=== PATIENT | male | born 1975 | race Caucasian/White ===

== ENCOUNTER 2017-11-10 18:23 | Observation (INO) | payer OTHER ==
[~2017-11-10] VITALS: Ht 176.5 cm; Wt 158.8 kg
[~2017-11-10 18:23] MED LIST: CYCLOBENZAPRINE10 M1 PO; FLEXERIL10 MG PO; GOOD SENSE IBU200 MG PO; IBUPROFEN800 M1 PO; MEDROL DOSEPAK1 PAC PO; MEDROL4 M2 PO; MEDROL4 MG PO; MULTIVITAMIN1 TAB PO; PERCOCET 325 MG1 TA2 PO; PERCOCET 5-3251 EACH PO; TORADOL10 MG PO; TRAMADOL50 MG PO; VICODIN 300 MG-1 TAB PO
--- NOTE | 2017-11-10 18:31 | ED NECK/BACK PAIN COMPLAINT ---
History of Present Illness General Chief Complaint: Lower Extremity Problems Stated Complaint: "NO MOBILITY IN MY LEGS" PER PT Source: patient, family Exam Limitations: no limitations Vital Signs & Intake/Output Vital Signs & Intake/Output Vital Signs Date Time Temp Pulse Resp B/P B/P Pulse O2 O2 Flow FiO2 Mean Ox Delivery Rate 11/11 0047 81 96 11/10 2215 98.3 66 20 146/90 96 Room Air 11/10 2120 98.6 69 20 117/72 98 Room Air 11/10 1827 97.4 87 18 168/83 97 Room Air Room Air ED Intake and Output 11/11 0000 11/10 1200 Intake Total Output Total Balance Patient 350 lb Weight Weight Reported by Patient Measurement Method Allergies Coded Allergies: Iodinated Contrast- Oral and IV Dye (PER PT SWELLING AND BLISTERS 11/10/17) Penicillins (UNKNOWN REACTION HAD A KID 11/10/17) cat dander (EYES ITCH AND SWELL, SNEEZE, COUGH 11/10/17) shellfish derived (THROAT CLOSES 11/10/17) Triage Note: TRIAGE: 42 Y/O MALE PRESENTS C/O CHRONIC LOW BACK PAIN AND NUMBNESS IN LOWER EXTREMITIES. REPORTS NUMBNESS ONSET X48 HOURS. "[place] TODAY RIGHT ONTO MY KNEES. NEVER STRUCK MY HEAD." Triage Nurses Notes Reviewed? yes Onset: Abrupt Duration: week(s): (2), constant, getting worse Quality/Severity: moderate, severe Location: lumbar spine Radiation: upper legs, lower legs HPI: 42-year-old male comes into the emergency room for further evaluation of low back pain. Patient reports that he's been having increasing low back pain with radiation down his legs bilaterally. Associated numbness and tingling. He reports that he also has been having weakness in his legs. His legs have been giving out he's been falling. He denies any urinary bowel dysfunction. Denies any genital numbness. He comes in seeking further evaluation. (Romario CARRENO,Jim) Reconcile Medications Cyclobenzaprine HCl 10 MG TABLET 1 TAB PO 4 TIMES/DAY PRN MUSCLE SPASM Ibuprofen 800 MG TABLET 1 TAB PO TID PRN pain Methylprednisolone. (Medrol) 4 MG TAB.DS.PK 1 DP PO AD BACK PAIN 6 on day 1 then reduce by one tablet daily until gone Naproxen 500 MG TABLET 1 TAB PO BID PAIN/INFLAMMATION (Reported) Oxycodone HCl/Acetaminophen (Percocet 5-325 MG Tablet) 5 MG-325 MG TABLET 1 TAB PO 4XDP PRN PAIN TEN...[id number] (Nicole ZHOU,Oscar Guzman) Past History Travel History Traveled to [place] past 21 day No Medical History Any Pertinent Medical History? 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 esophageal CA). MOTHER (Colon CA. MS.). UNCLE (MS). Hx Contributory? No (Jim Zimmerman) Review of Systems Review of Systems Constitutional: Reports: no symptoms. Eyes: Reports: no symptoms. Ears, Nose, Throat, Mouth: Reports: no symptoms. Respiratory: Reports: no symptoms. Cardiovascular: Reports: no symptoms. Gastrointestinal/Abdominal: Reports: no symptoms. Musculoskeletal: Reports: see HPI. Skin: Reports: no symptoms. Neurological/Psychological: Reports: no symptoms. All Other Systems: Reviewed and Negative (Jim Zimmerman) Physical Exam Physical Exam General Appearance: well developed/nourished, mild distress Head: atraumatic Eyes: Bilateral: normal appearance. Ears, Nose, Throat, Mouth: hearing grossly normal, moist mucous membrane Neck: normal inspection Respiratory: no respiratory distress Genital/Rectal: normal rectal tone Back: normal inspection, decreased range of motion, no tenderness, no swelling, no erythema Extremities: normal range of motion Neurologic/Psych: awake, alert, oriented x 3, normal mood/affect Skin: intact, normal color, warm/dry Comments: 3 out of 5 strength in lower extremities bilaterally, unable to elicit patellar reflex bilaterally, negative Babinski sign, unable to distinguish between sharp and dull in lower extremities Core Measures CVA/TIA Diagnosis: No (Jim Zimmerman) Progress Differential Diagnosis: cauda equina syn, herniated disc, myofascial strain, sciatica Plan of Care: Orders Procedure Date/time Status Regular Diet 11/11 B Active CONTIN. POSITIVE AIRWAY PRESS 11/10 224 Complete Vital Signs 11/10 2225 Active Teach/Educate 11/10 2225 Active Pain Treatment and Response 11/10 2225 Active Nutritional Intake, Monitor 11/10 2225 Active Isolation 11/10 2225 Active Intake & Output 11/10 2225 Active Patient Care Conference 11/10 2225 Active Activity/Ambulation 11/10 2225 Active TRC EVALUATION (GEN) 11/11 2119 Active PT Evaluate & Treat 11/11 2119 Active Pathway - chart 11/11 2119 Active House Staff 11/11 2119 Active Code Status 11/11 2119 Active Patient Data 11/11 2035 Active Saline Lock 11/[address] in observation 11/10 2032 Active Misc Message 11/10 2032 Active ED Holding Orders 11/10 2032 Active Vital Signs 11/10 2032 Active Code Status 11/10 2032 Complete WESTERGREN SED RATE 11/11 2023 Complete COMPREHENSIVE METABOLIC PANEL 11/10 2022 Complete CBC WITHOUT DIFFERENTIAL 11/10 2022 Complete Intake & Output 11/10 1827 Active VTE Mechanical Prophylaxis 11/10 UNK Active Current Medications Sig/Alonso Start time Last Medication Dose Stop Time Status Admin Enoxaparin Sodium 40 MG DAILY 11/11 09 AC (Lovenox) Ketorolac 30 MG Q12P PRN 11/11 06 AC Tromethamine (Toradol) Lidocaine 1 PAT DAILY 11/10 233 CAN (Lidoderm) Lidocaine 1 PAT QPM 11/10 2330 AC 11/11 (Lidoderm) 0125 Acetaminophen 650 MG Q6P PRN 11/10 2129 AC (Tylenol) Cyclobenzaprine HCl 5 MG TID PRN 11/10 2129 AC (Flexeril 5MG Tab) Ibuprofen 800 MG TID PRN 11/10 2129 AC (Motrin) Laboratory Tests 11/10/172054: ESR Westergren 2 11/10/172054: Anion Gap 7, Estimated GFR > 60, BUN/Creatinine Ratio 32.9 H, Glucose 106 H, Calcium 9.0, Total Bilirubin 0.4, AST 29, ALT 26, Alkaline Phosphatase 47, Total Protein 6.8, Albumin 4.0, Globulin 2.8, Albumin/Globulin Ratio 1.4, CBC w Diff NO MAN DIFF REQ, RBC 4.92, MCV 88.5, MCH 29.6, MCHC 33.4, RDW 14.2, MPV 9.2, Gran % 80.4 H, Lymphocytes % 15.5 L, Monocytes % 3.7, Eosinophils % 0.4, Basophils % 0, Absolute Granulocytes 12.8 H, Absolute Lymphocytes 2.5, Absolute Monocytes 0.6, Absolute Eosinophils 0.1, Absolute Basophils 0 Diagnostic Imaging: Viewed by Me: CT Scan. Discussed w/RAD: CT Scan. Radiology Impression: PATIENT: ALETA JIMENEZ PRESENT AGE: 42 PATIENT ACCOUNT NO: [id number] : 77 LOCATION: [facility] ORDERING PHYSICIAN: Jim CARRENO SERVICE DATE: 11/10/17 EXAM TYPE: CAT - CT LUMB SPINE WO IV CONTRAST EXAMINATION: CT LUMBAR SPINE WITHOUT CONTRAST CLINICAL INFORMATION: Low back pain. Weakness. Fall. COMPARISON: Abdominal pelvic CT from 08/18/2014. TECHNIQUE: Helical non-contrast CT images were obtained through the lumbar spine and 1.25 and 2.5 mm axial reconstructions were reviewed along with sagittal and coronal MPRs. DLP: 1243 mGy-cm FINDINGS: Visualized kidneys are of normal size and attenuation without demonstrable hydronephrosis. There is an approximately 1.3 cm nonobstructive calculus within the interpole region of the left kidney. Additional calcification is partially visualized within the left lower pole. There is neither abdominal nor pelvic free fluid. The urinary bladder is partially filled and unremarkable. No acute fractures are identified. The lumbar vertebra are in normal alignment. Disc heights and vertebral body heights are well-preserved. There are no paraspinal mass lesions. No large disc protrusions are demonstrable, though note that that MR would provide for greater tissue characterization. IMPRESSION: No acute lumbar spine fracture. No large demonstrable disc protrusion, though please note that MRI would be the optimal examination for evaluation of disc protrusion. Nonobstructive left renal calculi. DICTATED BY: Luis Huggins MD DATE/TIME DICTATED:09/09/18 / 1911 PHONE MANAGER:CHARI DATE/TIME TRANSCRIBED:1910 CONFIDENTIAL, DO NOT COPY WITHOUT APPROPRIATE AUTHORIZATION. < Electronically signed in Other Vendor System> SIGNED BY: Luis Huggins MD 11/10/171922 (Jim Zimmerman) Departure Departure Disposition: STILL A PATIENT Condition: Stable Clinical Impression Primary Impression: Bilateral lumbar radiculopathy Referrals: Patient Has No Primary Care Dr Departure Forms: Customer Survey General Discharge Information Admission Note Spoke With: Les Rodriguez MD Documentation of Exam: Documentation of any treatments & extenuating circumstances including Concerns Regarding Discharge (functional status, medication knowledge or non-compliance, living conditions, etc.) that warrant an admission rather than observation: Patient has progressive motor weakness bilateral lower extremities. Spoke with Dr. matthews from neurosurgery. He agrees patient should be admitted for MRI in the morning. Neurosurgery consultation. Neurology consultation. No need for emergent MRI tonight. Normal rectal tone. (Jim Zimmerman) PA/SUPERVISOR PIPELINE MAINTENANCE Co-Sign Statement Statement: ED Attending supervision documentation- [x] I saw and evaluated the patient. I have also reviewed all the pertinent lab results and diagnostic results. I agree with the findings and the plan of care as documented in the PA's/SUPERVISOR PIPELINE MAINTENANCE's documentation. [] I have reviewed the ED Record and agree with the PA's/SUPERVISOR PIPELINE MAINTENANCE's documentation. [] Additions or exceptions (if any) to the PAs/SUPERVISOR PIPELINE MAINTENANCE's note and plan are summarized below: [] (Nicole ZHOU,Oscar Guzman)
--- NOTE | 2017-11-10 19:23 | CT SCAN REPORT ---
EXAMINATION: CT LUMBAR SPINE WITHOUT CONTRAST CLINICAL INFORMATION: Low back pain. Weakness. Fall. COMPARISON: Abdominal pelvic CT from 08/18/2014. TECHNIQUE: Helical non-contrast CT images were obtained through the lumbar spine and 1.25 and 2.5 mm axial reconstructions were reviewed along with sagittal and coronal MPRs. DLP: 1243 mGy-cm FINDINGS: Visualized kidneys are of normal size and attenuation without demonstrable hydronephrosis. There is an approximately 1.3 cm nonobstructive calculus within the interpole region of the left kidney. Additional calcification is partially visualized within the left lower pole. There is neither abdominal nor pelvic free fluid. The urinary bladder is partially filled and unremarkable. No acute fractures are identified. The lumbar vertebra are in normal alignment. Disc heights and vertebral body heights are well-preserved. There are no paraspinal mass lesions. No large disc protrusions are demonstrable, though note that that MR would provide for greater tissue characterization. IMPRESSION: No acute lumbar spine fracture. No large demonstrable disc protrusion, though please note that MRI would be the optimal examination for evaluation of disc protrusion. Nonobstructive left renal calculi.
[2017-11-10] MEDS ORDERED: NAPROXEN500 M2 PO (20:43)
--- NOTE | 2017-11-10 20:54 | History & Physical ---
Andria Romero 11/10/172052: General Information and HPI MD Statement: I have seen and personally examined ALETA JIMENEZ and documented this H&P. The patient is a 42 year old M who presented with a patient stated chief complaint of [worsening back pain, weakness b/l l/e]. Source of Information: patient Exam Limitations: no limitations History of Present Illness: Mr. Jimenez, a 42 YO male with a PMHx signi for lumbar spine trauma and surgery in 2014, osteoarthritis, obstructive sleep apnea on intermittent use of CPAP, now brought to the ED by for evaluation of a worsening of chronic low back pain and sudden weakness of b/l l/e. The patient reports that he was doing well until the past week when he started having worsening low back pain. The pain is severe for the past 2 days, about 15/10, dull and sharp pain shooting down his both lower extremities. He reports that he took a Dosepak pack of Medrol for the pain but it did not help. The pain is also associated with bilateral numbness. For the past 2 days the patient feels very weak and is unable to get out of bed. Patient denies any recent falls/trauma/fever/chills/sick contacts/chest pain/ shortness of breath/abdominal pain/changes in bowel or bladder habits/fecal or urinary incontinence. Allergies/Medications Allergies: Coded Allergies: Iodinated Contrast- Oral and IV Dye (PER PT SWELLING AND BLISTERS 11/10/17) Penicillins (UNKNOWN REACTION HAD A KID 11/10/17) cat dander (EYES ITCH AND SWELL, SNEEZE, COUGH 11/10/17) shellfish derived (THROAT CLOSES 11/10/17) Home Med list Cyclobenzaprine HCl 10 MG TABLET 1 TAB PO 4 TIMES/DAY PRN MUSCLE SPASM Ibuprofen 800 MG TABLET 1 TAB PO TID PRN pain Methylprednisolone. (Medrol) 4 MG TAB.DS.PK 1 DP PO AD BACK PAIN 6 on day 1 then reduce by one tablet daily until gone Naproxen 500 MG TABLET 1 TAB PO BID PAIN/INFLAMMATION (Reported) Oxycodone HCl/Acetaminophen (Percocet 5-325 MG Tablet) 5 MG-325 MG TABLET 1 TAB PO 4XDP PRN PAIN TEN...[id number] Observation Initial Note - I have personally examined ALETA JIMENEZ on 11/10/17 at 2118. 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 esophageal CA). MOTHER (Colon CA. MS.). UNCLE (MS). Psychosocial History Where do you live? Home Who Do You Live With? spouse, child Services at Home: None Primary Language: Sammarinese ETOH Use: occasional use Illicit Drug Use: denies illicit drug use Functional Ability ADLs Independent: dressing, eating, toileting, bathing. Ambulation: non-ambulatory Employment History Employment Employed Review of Systems Review of Systems Constitutional: Reports: see HPI. Exam & Diagnostic Data Last 24 Hrs of Vital Signs/I&O Vital Signs Date Time Temp Pulse Resp B/P B/P Pulse O2 O2 Flow FiO2 Mean Ox Delivery Rate 11/11 0047 81 96 11/10 2215 98.3 66 20 146/90 96 Room Air 11/10 2120 98.6 69 20 117/72 98 Room Air 11/10 1827 97.4 87 18 168/83 97 Room Air Room Air Intake & Output 11/11 0800 11/11 0000 11/10 1600 Intake Total Output Total Balance Patient 350 lb Weight Weight Reported by Patient Measurement Method Physical Exam General Appearance Alert, Oriented X3, Cooperative, No Acute Distress Skin No Rashes, No Breakdown, No Significant Lesion Skin Temp/Moisture Exam: Cool/Dry Sepsis Skin Exam (color): Normal for Ethnicity HEENT Atraumatic, PERRLA, EOMI, Mucous Membr. moist/pink Neck Supple, No JVD, No thryomegaly, +2 Carotid Pulse wo Bruit, No LAD Lymphatic Cervical nl Cardiovascular Regular Rate, Normal S1, Normal S2, No Murmurs Lungs Clear to Auscultation, Normal Air Movement Abdomen Normal Bowel Sounds, Soft, No Tenderness, No Hepatospenomegaly, No Masses Neurological Normal Speech, Normal Tone, Sensation Intact, Cranial Nerves 3-12 NL, Reflexes 2+, Strength 5/5 b/l u/l, Strength 3/5 b/l l/l, Back: spinal tenderness L3-5, SLR +B/L Extremities No Clubbing, No Cyanosis, No Edema, Normal Pulses, No Tenderness/ Swelling Vascular Normal Pulses, Pulses Symmetrical Assessment/Plan Assessment: Mr. Jimenez, a 42 YO male with a PMHx signi for lumbar spine trauma and surgery in 2014, osteoarthritis, obstructive sleep apnea on intermittent use of CPAP, now brought to the ED by for evaluation of a worsening of chronic low back pain and sudden weakness of b/l l/e. CT lumbar spine: No large demonstrable disc protrusion. No acute lumbar fracture. Problems: 1. Lower back likely Lumbar Radiculopathy secondary to disc herniation 2. NICK on intermittent use of CPAP 3. Morbid obesity 4.leukocytosissecondary to recent steroid use PLAN: -Place in observation status on the gen med floor -Appropriate pain control following pain pathway and muscle relaxant. Diet regular DVT prophylaxis: Subcu heparin and Alps CODE STATUS full code As Ranked By This Provider Problem List: 1. Back pain 2. Bilateral lumbar radiculopathy 3. Morbid obesity 4. NICK (obstructive sleep apnea) Core Measures/Misc (11/18) Acute Coronary Syndrome ACS Diagnosis: No Congestive Heart Failure Congestive Heart Failure Diagnosis No Cerebrovascular Accident CVA/TIA Diagnosis: No VTE (View Protocol) VTE Risk Factors Age>40 No Mechanical VTE Prophylaxis d/t N/A MechProphylax Ordered No VTE Pharm Prophylaxis d/t NA PharmProphylax ordered Sepsis (View protocol) Sepsis Present: No If YES complete Sepsis Event Note If YES complete Sepsis Event Note Les Rodriguez 11/10/17 2210: Core Measures/Misc (11/18) Sepsis (View protocol) If YES complete Sepsis Event Note If YES complete Sepsis Event Note Attending MD Review Statement Attending Statement Attending MD Statement: examined this patient, discuss w/resident/PA/SILK TOP HAT BODY MAKER, agreed w/resident/PA/SILK TOP HAT BODY MAKER Attending Assessment/Plan: Addendum by . Patient was seen and examined at bedside today ( 11/10/17) at 9:20 Pm. Reviewed the history physical done by the resident. Reviewed the past medical family, family, social history. ROS: 10 point system reviewed and negative except as described above. See the H&P per resident note. Exam: Patient is morbidly obese, not in distress. Lying comfortably on the bed. Cranial nerves are intact, normal power in upper extremities. 3/5 power in lower extremities, this is mostly due to his back pain. Hard to elicit deep tendon reflexes given his obesity, no hyperreflexia noted. Bruises noted on the lower extremities. Gait not tested as he needs a lot of assistance to get up and walk. For the full exam per resident note. Labs, prior records reviewed. Lumbar spine CT:IMPRESSION: No acute lumbar spine fracture. No large demonstrable disc protrusion, though please note that MRI would be the optimal examination for evaluation of disc protrusion. Assessment and plan: #Bilateral leg weakness, paresthesias, and able to walk, multiple falls-rule out lumbosacral cord compression. On CT L-spine no disc protrusion noted, no fractures. Patient has intact bowel and bladder but not able to raise the legs mostly because of the pain in the back. She did not respond to Medrol Bigg given recently will hold off on any further steroids. Give pain medications for pain control, can use NSAIDs like Toradol. Also can use as needed Percocet. ER spoke to the neurosurgery over phone. Order L-spine MRI. Further management depending on the MRI results. #Leukocytosis-due to recent steroid use. #Morbid obesity-weight loss and exercise was suggested. #Patient has spine surgery before for fracture. #DVT prophylaxis-he is subcu Lovenox. Patient is admitted on observation status. Reviewed with the resident. Agree with the rest of the plan as per resident's note. Dr.Ravinder Mike MD. Hospitalist. Pager: [phone], cell: [phone]. Brent ZHOU,[facility] 11/10/17 2244: Core Measures/Misc (11/18) Acute Coronary Syndrome ACS Diagnosis: No Congestive Heart Failure Congestive Heart Failure Diagnosis No Cerebrovascular Accident CVA/TIA Diagnosis: No VTE (View Protocol) VTE Risk Factors Age>40 No Mechanical VTE Prophylaxis d/t N/A MechProphylax Ordered No VTE Pharm Prophylaxis d/t NA PharmProphylax ordered Sepsis (View protocol) Sepsis Present: No If YES complete Sepsis Event Note If YES complete Sepsis Event Note Resident Review Statement Resident Statement: examined this patient, discussed with sourcing internship, reviewed EMR data (avail) Other Findings: 42 yo male with history of NICK, back pain s/p lumbar discectomy presented to the ER for worsening lower back pain. The patient states that he had a lumbar surgery 3 years ago and since then he pretty much had been pain free. However, for the last week he has been having increasing back pain. He was recently prescribed a Medrol dose pack but he does not feel it has been helping him. For the past two days his symptoms took a downhill. This morning he had significantly difficulty walking with multiple falls due to his legs giving out. He has severe lower back pain radiating down to his legs with associated numbness. He denies any loss of bowel/bladder control. Denies any fevers, chills , chest pain, shortness of breath or any other associated symptoms. His occupation does not involve any heavy weight lifting. ROS: as per HPI Physical Exam: General Appearance: well developed/nourished, mild distress Head: atraumatic, normal appearance Ears, Nose, Throat: normal hearing and speech. Respiratory: normal breath sounds, chest non-tender, no respiratory distress Cardiovascular: regular rate/rhythm, normal S1 and S2, no M/R/G Gastrointestinal: soft, non-tender Back: point lumbar spine tenderness at level of L3-L4. No paraspinal tenderness. +ve SLR Extremities: no edema Neurologic/Psych: awake, alert, oriented x 3, normal mood/affect, strength 5/5 in UE and 3/5 in LE. reflexes unable to be assessed. Sensation appears to be equal on both lower extremities Skin: intact, normal color, warm/dry CT lumbar spine: No large demonstrable disc protrusion. No acute lumbar fracture. Assessment: 1. Lower back likely Lumbar Radiculopathy secondary to disc herniation 2. History of NICK 3. Morbid obesity Plan: * Admit patient to general medicine in obs * Pain control with tylenol/nsaids and flexeril. patient wishes to avoid narcotics * MRI lumbar spine in am to assess for disc herniation. He does have a +ve SLR * PT * CPAP at night * Diet: Regular * DVT Prophylaxis: SC Lovenox * Code: Full Code
[2017-11-10 21:14] LABS: ABSOLUTE BASOPHIL COUNT 0 /CUMM (0.0-0.2); ABSOLUTE EOSINOPHIL COUNT 0.1 /CUMM (0.0-0.7); ABSOLUTE GRANULOCYTE CT 12.8 /CUMM (1.4-6.5); ABSOLUTE LYMPH COUNT 2.5 /CUMM (1.2-3.4); ABSOLUTE MONOCYTE COUNT 0.6 /CUMM (0.10-0.60); BASOPHIL % 0 % (0.0-2.0); EOSINOPHIL % 0.4 % (0-5); GRANULOCYTE % 80.4 % (42.2-75.2); HEMATOCRIT 43.5 % (42-52); MEAN CORPUSCULAR HGB 29.6 PG (27.0-31.0); MEAN CORPUSCULAR HGB CONC 33.4 G/DL (33.0-37.0); MEAN CORPUSCULAR VOLUME 88.5 FL (80.0-94.0); MEAN PLATELET VOLUME 9.2 FL (7.4-10.4); PLATELET COUNT 225 /CUMM (130-400); RBC DISTRIBUTION WIDTH 14.2 % (11.5-14.5); RED BLOOD CELL CT 4.92 /CUMM (4.70-6.10); WHITE BLOOD CELL COUNT 15.9 /CUMM (4.8-10.8)
[2017-11-10 22:15] VITALS: BP 146/90
--- NOTE | 2017-11-11 06:04 | PN- Housestaff ---
See Addendum Subjective Follow-up For: Lower Back Pain Subjective: Pt seen and examined at bedside this morning. States his pain is worse with movement and currently controlled at a 5/10 located at the lower back. He is more concerned about his weakness in his lower extremities and numbness and tingling. He denies any fevers, chills and bowel/bladder incontinence. Patient seen by neurosurgery this morning. Pending MRI results. Review of Systems Constitutional: Denies: see HPI. Objective Last 24 Hrs of Vital Signs/I&O Vital Signs Date Time Temp Pulse Resp B/P B/P Pulse O2 O2 Flow FiO2 Mean Ox Delivery Rate 11/12 915 Room Air 11/11 07 97.5 70 20 110/70 96 11/11 0047 81 96 11/10 2215 98.3 66 20 146/90 96 Room Air 11/10 2120 98.6 69 20 117/72 98 Room Air 11/10 1827 97.4 87 18 168/83 97 Room Air Room Air Intake & Output 11/11 1600 11/11 0800 11/11 0000 Intake Total 200 Output Total Balance 200 Intake, Oral 200 Number Bowel Movements Patient 350 lb Weight Weight Reported by Patient Measurement Method Physical Exam General Appearance: Alert, Oriented X3, Cooperative, No Acute Distress Skin: No Rashes, No Breakdown HEENT: Mucous Membr. moist/pink Cardiovascular: Normal S1, Normal S2 Lungs: Clear to Auscultation, Normal Air Movement Abdomen: Normal Bowel Sounds, Soft, No Tenderness Neurological: Strength decreased 4/5 in bilateral lower extremities; normal sensation and tone; reflexes intact; no UMN signs present, Negative straight leg test bilaterally; areflexic Extremities: No Cyanosis, No Edema Vascular: Normal Pulses Current Medications: Current Medications Sig/Alonso Start time Last Medication Dose Route Stop Time Status Admin Acetaminophen 650 MG Q6P PRN 11/10 2129 AC PO Cyclobenzaprine HCl 5 MG TID PRN 11/10 2129 AC 11/11 PO 903 Enoxaparin Sodium 40 MG DAILY 11/11 899 AC 11/11 SC 903 Ibuprofen 800 MG TID PRN 11/10 2129 AC PO Ketorolac 30 MG Q12P PRN 11/11 599 AC 11/11 Tromethamine IV 903 Ketorolac 60 MG ONCE ONE 11/10 1845 DC 11/10 Tromethamine IM 11/10 1845 1839 Ketorolac 0 .STK-MED ONE 11/10 183 DC Tromethamine IM Lidocaine 1 PAT DAILY 11/10 2330 CAN TOP Lidocaine 1 PAT QPM 11/10 2330 AC 11/11 TOP 0125 Morphine Sulfate 2 MG Q6P PRN 11/10 2130 DC 11/10 IV 2253 Oxycodone/ 1 TAB ONCE ONE 11/10 1845 DC 11/10 Acetaminophen PO 11/10 1845 183 Oxycodone/ 0 .STK-MED ONE 11/10 183 DC Acetaminophen PO Patient Medication 1 ED ONE ONE 11/11 1045 GA Teaching ED 11/11 1046 Last 24 Hrs of Lab/[place] Results Last 24 Hrs of Labs/Mics: Laboratory Tests 11/10/172054: ESR Westergren 2 11/10/172054: Anion Gap 7, Estimated GFR > 60, BUN/Creatinine Ratio 32.9 H, Glucose 106 H, Calcium 9.0, Total Bilirubin 0.4, AST 29, ALT 26, Alkaline Phosphatase 47, Total Protein 6.8, Albumin 4.0, Globulin 2.8, Albumin/Globulin Ratio 1.4, CBC w Diff NO MAN DIFF REQ, RBC 4.92, MCV 88.5, MCH 29.6, MCHC 33.4, RDW 14.2, MPV 9.2, Gran % 80.4 H, Lymphocytes % 15.5 L, Monocytes % 3.7, Eosinophils % 0.4, Basophils % 0, Absolute Granulocytes 12.8 H, Absolute Lymphocytes 2.5, Absolute Monocytes 0.6, Absolute Eosinophils 0.1, Absolute Basophils 0 Assessment/Plan Assessment: 42 yo male with history of NICK, back pain s/p lumbar discectomy presented to the ER for worsening lower back pain. The patient states that he had a lumbar surgery 3 years ago and since then he pretty much had been pain free. However, for the last week he has been having increasing back pain. He was recently prescribed a Medrol dose pack but he does not feel it has been helping him. For the past two days his symptoms took a downhill. This morning he had significantly difficulty walking with multiple falls due to his legs giving out. He has severe lower back pain radiating down to his legs with associated numbness. He denies any loss of bowel/bladder control. Denies any fevers, chills , chest pain, shortness of breath or any other associated symptoms. His occupation does not involve any heavy weight lifting. CT lumbar spine: No large demonstrable disc protrusion. No acute lumbar fracture. Lumbar MRI - At L2-L3 there is a central disc protrusion which deforms the thecal sac causing severe spinal canal stenosis. - At L4-L5 there are postoperative findings related to partial left-sided hemilaminectomy and ligamentum flavum stripping. There is disc bulging with shallow central protrusion resulting in flattening of the ventral thecal sac and encroachment on the subarticular zones. - Developmental narrowing of the spinal canal related to short pedicles. 11/11: Pt seen by neurosurgery this morning and MRI read. Recommends epidural spinal injection in the AM by IR. Will hold off on Lovenox + NSAIDs for now. PROBLEM LIST: 1. Lower Back likely Lumbar Radiculopathy secondary to Disc Herniation 2. History of NICK 3. Morbid Obesity PLAN: * Pain Control: Tylenol/NSAIDs and flexeril - pt wants to avoid narcotics * MRI lumbar spine: + SLR; epidural in AM * PT Evaluation * Follow up Neurosurgery recommendations Octavio Ann- recommended Epidural injection * CPAP at night Code Status: Full Code Diet: Regular DVT PPx: will hold off on anticoagulation given epidural in the AM by IR. Problem List: 1. Low back pain 2. Bilateral lumbar radiculopathy 3. NICK (obstructive sleep apnea) 4. Morbid obesity Pain Ratin Pain Location: lower back Pain Goal: Remain pain free Pain Plan: as per pain pathway Tomorrow's Labs & Rationales: cbc bep
[2017-11-11 07:10] VITALS: BP 110/70
--- NOTE | 2017-11-11 10:03 | PN- Neurosurgical ---
Surgical Brief Attending Note Brief Attending Note: 42-year-old right-handed male with a weeks' history of worsening chronic lower back pain and a 2-3 day history of weakness of his lower extremity mainly of his thigh muscles. This had led him to see his primary care doctor Saturday would prescribe some steroids which perhaps seemed to improve it for a day before having it worsen again yesterday which led to his being admitted. The pain starts in his back shoots down his thighs He denies any recent falls or trauma he denies any flulike symptoms There is no bowel or bladder incontinence His past medical history is positive for obesity asthma a lumbar spine trauma and surgery back in 2014 COPD. 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 He is nontender to palpation of his back. He has some paraspinous muscle spasm. He has 3 over 5 weakness of iliopsoas and quads is a decreased sensation in the L3 and L4 distribution he has 4+ over 5 strength in distal lower extremities. He has negative straight leg raising is bilaterally. He is areflexic His CAT scan does not show any lumbar fractures nor any very obvious disc disease. 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 This obviously is not a urgent finding. Uncertain as to the cause of this. Obviously he needs an MRI should the MRI did not show any clear-cut surgical lesion he obviously needs a medical workup for some form of transverse myelitis In any event surgery would be very complicated on him given his size
--- NOTE | 2017-11-11 11:37 | MRI REPORT ---
EXAMINATION: MR LUMBAR SPINE WITHOUT CONTRAST CLINICAL INFORMATION: History lumbar spine surgery. Severe back pain. Positive straight leg raise. COMPARISON: Lumbar spine CT 11/10/2017. TECHNIQUE: MRI of the lumbar spine was obtained using routine sequences without contrast. FINDINGS: The lumbar vertebral bodies maintain normal heights and alignment. There is disc desiccation with mild disc height loss at L1-L2 and L4-L5. No endplate or bone marrow edema is seen. The distal spinal cord appears normal. The conus medullaris terminates normally at the L1 level. There is developmental narrowing of the spinal canal related to short pedicles. The extraspinal soft tissues are within normal limits. SPINAL LEVELS: L1-L2: Mild disc bulging. No spinal canal or neural foraminal stenosis. L2-L3: Central disc protrusion deforms the thecal sac causing severe spinal canal stenosis. Mild facet arthropathy. No neural foraminal stenosis. L3-L4: No posterior disc abnormality. Mild facet arthropathy. No spinal canal or neural foraminal stenosis. L4-L5: Postoperative findings related to partial left sided hemilaminectomy with ligamentum flavum stripping. Disc bulging with shallow central disc protrusion flattening the ventral thecal sac encroaching on the subarticular zones with disc material contacting the left more than right descending L5 nerve roots. Mild facet arthropathy. No neural foraminal stenosis. L5-S1: Small central disc protrusion without spinal canal stenosis. Mild facet arthropathy. No neural foraminal stenosis. IMPRESSION: - At L2-L3 there is a central disc protrusion which deforms the thecal sac causing severe spinal canal stenosis. - At L4-L5 there are postoperative findings related to partial left-sided hemilaminectomy and ligamentum flavum stripping. There is disc bulging with shallow central protrusion resulting in flattening of the ventral thecal sac and encroachment on the subarticular zones. - Developmental narrowing of the spinal canal related to short pedicles.
[2017-11-11 14:00] VITALS: BP 112/62
[2017-11-11 20:00] VITALS: BP 122/68
[2017-11-12 06:07] VITALS: BP 148/82
--- NOTE | 2017-11-12 07:12 | PN- Housestaff ---
See Addendum Subjective Follow-up For: Back Pain Subjective: Pt seen and examined at bedside. Pain levels under control. Afebrile overnight with no acute complaints. Pt for IR epidural injection this morning. Review of Systems Constitutional: Denies: see HPI. Objective Last 24 Hrs of Vital Signs/I&O Vital Signs Date Time Temp Pulse Resp B/P B/P Pulse O2 O2 Flow FiO2 Mean Ox Delivery Rate 11/12 606 98.0 67 22 148/82 97 Room Air 11/12 0013 79 97 11/11 2304 68 95 11/11 2000 98.3 67 16 122/68 97 11/11 1400 97.9 78 20 112/62 98 Room Air 11/11 0916 Room Air Intake & Output 11/12 0800 11/12 0000 11/11 1600 Intake Total 200 180 600 Output Total Balance 200 180 600 Intake, Oral 200 180 600 Physical Exam General Appearance: Alert, Oriented X3, Cooperative, Mild Distress Skin: No Rashes, No Breakdown HEENT: EOMI, Mucous Membr. moist/pink Neck: Supple Cardiovascular: Normal S1, Normal S2 Lungs: Clear to Auscultation, Normal Air Movement Abdomen: Normal Bowel Sounds, Soft, No Tenderness Extremities: negative straight leg test Decreaesd strength 3/5 bilateral lower extremities sensation intact Areflexic Vascular: Normal Pulses Current Medications: Current Medications Sig/Alonso Start time Last Medication Dose Route Stop Time Status Admin Acetaminophen 0 .STK-MED ONE 11/11 1820 DC IV Acetaminophen 1,000 MG Q6P PRN 11/11 1500 AC 11/11 N/A 1 UNIT IV 1820 Acetaminophen 650 MG Q6P PRN 11/10 2130 AC PO Alprazolam 0.5 MG AT BEDTIME 11/11 2100 CAN PO 11/18 2058 Cyclobenzaprine HCl 0 .STK-MED ONE 11/11 182 DC PO Cyclobenzaprine HCl 5 MG TID PRN 11/10 2130 AC 11/11 PO 1820 Enoxaparin Sodium 40 MG DAILY 11/11 09 DC 11/11 SC 0904 Ibuprofen 800 MG TID PRN 11/10 213 DC PO Ketorolac 30 MG Q12P PRN 11/11 06 DC 11/11 Tromethamine IV 0904 Lidocaine 1 PAT QPM 11/10 2330 11/11 TOP 0125 Patient Medication 1 ED ONE ONE 11/11 1045 DC Teaching ED 11/11 1046 Assessment/Plan Assessment: 42 yo male with history of NICK, back pain s/p lumbar discectomy presented to the ER for worsening lower back pain. The patient states that he had a lumbar surgery 3 years ago and since then he pretty much had been pain free. However, for the last week he has been having increasing back pain. He was recently prescribed a Medrol dose pack but he does not feel it has been helping him. For the past two days his symptoms took a downhill. This morning he had significantly difficulty walking with multiple falls due to his legs giving out. He has severe lower back pain radiating down to his legs with associated numbness. He denies any loss of bowel/bladder control. Denies any fevers, chills , chest pain, shortness of breath or any other associated symptoms. His occupation does not involve any heavy weight lifting. 11/12: Scheduled for epidural spinal injection in the AM by IR. Will hold off on Lovenox + NSAIDs for now. Follow with PT after epidural. PROBLEM LIST: 1. Lower Back likely Lumbar Radiculopathy secondary to Disc Herniation 2. History of NICK 3. Morbid Obesity PLAN: * Pain Control: Tylenol/NSAIDs and flexeril - pt wants to avoid narcotics * MRI lumbar spine: + SLR; epidural in AM * PT Evaluation today after epidural injection * Follow up Neurosurgery recommendations Octavio Ann- recommended Epidural injection * CPAP at night Code Status: Full Code Diet: Regular DVT PPx: will hold off on anticoagulation given epidural in the AM by IR. Problem List: 1. Lumbar radiculopathy 2. Low back pain Pain Ratin Pain Location: lower back Pain Goal: Pain 4 or less Pain Plan: as per pain pathway Tomorrow's Labs & Rationales: cbc bep 2. Low back pain Pain Ratin Pain Location: lower back Pain Goal: Pain 4 or less Pain Plan: as per pain pathway Tomorrow's Labs & Rationales: cbc bep
--- NOTE | 2017-11-12 07:30 | Patient Discharge Instructions ---
Discharge Instructions General Discharge Information You were seen/treated for: Back Pain Special Instructions: Please follow up with PCP within 1 week of discharge. Please follow up with neurosurgeon Dr. Dodd within 1 week of discharge. Please return if worsening back pain, lower extremity weakness, numbness, tingling, fevers, chills, bowel/bladder incontinence. Acute Coronary Syndrome Inclusion Criteria At DC or during hospital stay patient has or had the following: ACS DIAGNOSIS No Discharge Core Measures Meds if any: Prescribed or Continued at Discharge Meds if any: NOT Prescribed or Continued at Discharge Congestive Heart Failure Inclusion Criteria At DC or during hospital stay patient has or had the following: CHF DIAGNOSIS No Discharge Core Measures Meds if any: Prescribed or Continued at Discharge Meds if any: NOT Prescribed or Continued at Discharge Cerebrovascular accident Inclusion Criteria At DC or during hospital stay patient has or had the following: CVA/TIA Diagnosis No Discharge Core Measures Meds if any: Prescribed or Continued at Discharge Meds if any: NOT Prescribed or Continued at Discharge Venous thromboembolism Inclusion Criteria VTE Diagnosis No VTE Type NONE VTE Confirmed by (Test) NONE Discharge Core Measures - Per Current guidelines, there needs to be overlap - treatment for the first 5 days of Warfarin therapy. - If discharged on Warfarin prior to 5 days of - overlap therapy, the patient will need to be - assessed for post discharge needs including - *Post discharge parental anticoagulation - *Warfarin and/or parental anticoagulation education - *Follow up date to check INR post discharge At least 5 days overlap therapy as Inpatient No Meds if any: Prescribed or Continued at Discharge Note: Overlap Therapy is Warfarin and Anticoagulant Meds if any: NOT Prescribed or Continued at Discharge
--- NOTE | 2017-11-12 07:59 | PN- Neurosurgical ---
Surgical Brief Attending Note Brief Attending Note: Somewhat more comfortable Somewhat more comfortable Epidural injection this morning Slight degree of weakness of thigh musculature persists if not markedly improved would consider taking to surgery for disc excision L2- 3 on aftersanjiv Discussed the indications alternatives and risks with the patient to is agreeable to this plan
[2017-11-12 08:23] LABS: ABSOLUTE BASOPHIL COUNT 0 /CUMM (0.0-0.2); ABSOLUTE EOSINOPHIL COUNT 0.2 /CUMM (0.0-0.7); ABSOLUTE GRANULOCYTE CT 3.9 /CUMM (1.4-6.5); ABSOLUTE LYMPH COUNT 3.6 /CUMM (1.2-3.4); ABSOLUTE MONOCYTE COUNT 0.6 /CUMM (0.10-0.60); BASOPHIL % 0.5 % (0.0-2.0); EOSINOPHIL % 2.9 % (0-5); GRANULOCYTE % 47.1 % (42.2-75.2); HEMATOCRIT 45.5 % (42-52); MEAN CORPUSCULAR HGB 29.5 PG (27.0-31.0); MEAN CORPUSCULAR HGB CONC 33.3 G/DL (33.0-37.0); MEAN CORPUSCULAR VOLUME 88.5 FL (80.0-94.0); PLATELET COUNT 200 /CUMM (130-400); RBC DISTRIBUTION WIDTH 14.4 % (11.5-14.5); RED BLOOD CELL CT 5.14 /CUMM (4.70-6.10)
[2017-11-12 09:13] LABS: WHITE BLOOD CELL COUNT 8.3 /CUMM (4.8-10.8)
--- NOTE | 2017-11-12 10:52 | INTERVENTIONAL RADIOLOGY RPT ---
EXAMINATION: LUMBAR EPIDURAL STEROID INJECTION CLINICAL INFORMATION: Spinal stenosis. Lumbar radiculopathy, weakness, numbness. COMPARISON: MRI of the lumbar spine 11/11/2017 INTERVENTIONAL RADIOLOGIST: Tonio Pereira M.D. FLUORO TIME: 63 seconds (6 fluoroscopic images) DAP 20.5 MEDICATIONS: 4 mL 1% Lidocaine (preservative free) 3 mL Bupivacaine 80 mg Depo-medrol CONTRAST: 1 mL Omnipaque 300 TECHNIQUE AND FINDINGS: Informed consent was obtained from the patient prior to the procedure. During this process, the procedure and potential alternatives was explained, along with the intended outcome and benefits. The risks of the procedure, as well as the risk of not doing the procedure, were discussed. The patient was given the opportunity to ask questions regarding the procedure and appeared competent to make medical decisions. A signed consent form which documents this discussion was placed in the medical record. The patient's previous imaging was reviewed. The patient was brought to the interventional radiology suite and a timeout procedure was performed. The patient was placed on the fluoroscopic table in the prone position. The L3-L4 level was localized fluoroscopically and marked on the skin. The back was sterilely prepped and draped. Following administration of local anesthesia using 1% lidocaine, a 20-gauge Touhy needle was introduced into the posterior epidural space via a midline approach at the L3-L4 level under fluoroscopic guidance using release of pressure technique. 2 mL of Omnipaque 300 was then injected under fluoroscopic visualization confirming epidural location of the needle. A mixture of 2 mL of Depo-medrol (80 mg), 3 mL of preservative-free 0.5% bupivacaine was injected. The needle was withdrawn. A sterile bandage was placed. The patient tolerated the procedure well. There was no evidence of complications. IMPRESSION: Successful fluoroscopic-guided lumbar epidural steroid injection.
[2017-11-12 14:34] VITALS: BP 130/80
== END 2017-11-12 16:58 ==
LOC: ERH 18:23 → ERHI 20:33 → 2NA 20:33 → ENRESERV 21:07 → ENTRNSPT 21:52 → EDTRNSPTSTS 21:59 → 2NA 22:05 → CMPTRNSPT 22:14 → 2NA 11-11 09:51 → ENPENDDIS 11-12 14:50 → ENTRNSPT 11-12 16:14 → EDTRNSPTSTS 11-12 16:16 → 2NA 11-12 16:58 → CMPTRNSPT 11-12 17:03
PROVIDERS: Physical Medicine & Rehabilitation Pain Medicine; Physician Assistant Medical
DX: M51.26 Other intervertebral disc displacement, lumbar region (principal); M19.90 Unspecified osteoarthritis, unspecified site; G47.33 Obstructive sleep apnea (adult) (pediatric); E66.01 Morbid (severe) obesity due to excess calories; D72.829 Elevated white blood cell count, unspecified
CPT/HCPCS: 1288; 72148; 36415; 96372; 96374; 96375; 97116-GP; 97161-GP; G0378; J0131; J1030; J1650; J1885

== ENCOUNTER 2017-11-19 16:22 | Inpatient (IN) | payer OTHER ==
[~2017-11-19] VITALS: Ht 175.3 cm; Wt 162.4 kg
[~2017-11-19 16:22] MED LIST changes: +NAPROXEN500 M2 PO
[2017-11-19 23:43] LABS: ABSOLUTE BASOPHIL COUNT 0 /CUMM (0.0-0.2); ABSOLUTE EOSINOPHIL COUNT 0.1 /CUMM (0.0-0.7); ABSOLUTE GRANULOCYTE CT 10.3 /CUMM (1.4-6.5); ABSOLUTE LYMPH COUNT 2.5 /CUMM (1.2-3.4); ABSOLUTE MONOCYTE COUNT 0.4 /CUMM (0.10-0.60); BASOPHIL % 0.2 % (0.0-2.0); EOSINOPHIL % 0.7 % (0-5); HEMATOCRIT 45.8 % (42-52); MEAN CORPUSCULAR HGB 29.1 PG (27.0-31.0); MEAN CORPUSCULAR VOLUME 88.2 FL (80.0-94.0); MEAN PLATELET VOLUME 9.1 FL (7.4-10.4); PLATELET COUNT 234 /CUMM (130-400); RBC DISTRIBUTION WIDTH 14.9 % (11.5-14.5); WHITE BLOOD CELL COUNT 13.3 /CUMM (4.8-10.8)
[2017-11-19 23:44] LABS: GRANULOCYTE % 77.5 % (42.2-75.2)
--- NOTE | 2017-11-19 23:47 | History & Physical ---
FernandoJimi 11/19/17 3682: General Information and HPI MD Statement: I have seen and personally examined ALETA JIMENEZ and documented this H&P. The patient is a 42 year old M who presented with a patient stated chief complaint of [weakness in legs]. Source of Information: patient, old records Exam Limitations: no limitations History of Present Illness: 42 year old male with history of lower back trauma status post spinal surgery, lumbar radiculopathy and lumbar disc herniation, recently seen at [facility] last week and treated with epidural injections presents again with weakness in his bilateral legs. The patient was discharged on November 12 and felt well until Saturday when he began feeling weakness in his legs, which has progressively been worsening. He suffered 2 falls outside of hospital environment before returning for treatment, reports that he has difficulty ambulating, with pain and has only been able to ambulate at home, slowly and painfully. He states that the weakness in his legs usually worse in the mornings, and that he has been using a walker to ambulate around his home. He denies any loss of bladder or bowel control. The patient does report that he experiences shooting pain on the sides of his buttocks and legs at times, as well as occasional numbness and tingling in his feet and lower extremities. Neither of these are present at the moment. He reports pain like "muscle soreness" in his upper legs. Patient reports some anxiety addition as he is the only parent to his son at home. He reports being an occasional smoker, but has not been able to smoke lately as he cannot walk outside of the home. He reports occasional alcohol use , drinking beer at social events. Denies illicit drug use. Allergies/Medications Allergies: Coded Allergies: Penicillins (UNKNOWN REACTION HAD A KID 11/10/17) cat dander (EYES ITCH AND SWELL, SNEEZE, COUGH 11/10/17) shellfish derived (THROAT CLOSES 11/10/17) Home Med list Cyclobenzaprine HCl 10 MG TABLET 1 TAB PO 4 TIMES/DAY PRN MUSCLE SPASM Past History Travel History Traveled to [place] past 21 day No Medical History Neurological: NONE EENT: PRESSURE EQUALIZING TUBES Cardiovascular: NONE Respiratory: obstructive sleep apnea Gastrointestinal: NONE Hepatic: NONE Renal: NONE Musculoskeletal: chronic back pain, disk herniation Psychiatric: NONE Endocrine: NONE Blood Disorders: NONE Cancer(s): NONE CENSUS TAKER/Reproductive: NONE Other Medical Hx: Morbid obesity History of MRSA: No History of VRE: No History of CDIFF: No Influenza Vaccine: 12/02/13 Surgical History Surgical History: laminectomy (DISCECTOMY LUMBAR TWO-LEVEL), 4TH AND 5TH METACARPEL SX TONSILLECTOMY Past Family/Social History Family History Relations & Conditions if any FATHER (Lung and ? esophageal CA). MOTHER (Colon CA. MS.). UNCLE (MS). Psychosocial History Who Do You Live With? spouse, child Services at Home: None Primary Language: Djib[place]ian Functional Ability ADLs Independent: dressing, eating, toileting, bathing. Ambulation: non-ambulatory Review of Systems Review of Systems Constitutional: Reports: weakness. Denies: chills, diaphoresis, fever, malaise. Cardiovascular: Denies: chest pain, orthopena, peripheral edema, syncope. Respiratory: Denies: cough, orthopnea, sputum production, wheezing. GI: Denies: abdominal pain, diarrhea, nausea, vomiting. Genitourinary: Denies: discharge, dysuria, frequency, hematuria, hesitation, nocturia, pain, urgency. Musculoskeletal: Reports: back pain, muscle pain. Neurological/Psychological: Reports: paresthesia, tingling. Exam & Diagnostic Data Last 24 Hrs of Vital Signs/I&O Vital Signs Date Time Temp Pulse Resp B/P B/P Pulse O2 O2 Flow FiO2 Mean Ox Delivery Rate 11/20 0400 98.2 70 20 128/69 99 Room Air 11/20 0130 98.0 77 20 136/87 99 Room Air 11/19 2322 97.9 78 18 133/82 95 Room Air 11/19 2211 98.0 72 20 132/76 98 Room Air 11/19 1640 97.1 75 15 97 Room Air Room Air Intake & Output 11/20 0800 11/20 0000 11/19 1600 Intake Total 0 Output Total Balance 0 Intake, Oral 0 Physical Exam General Appearance Alert, Oriented X3, Cooperative, No Acute Distress HEENT Atraumatic, PERRLA, EOMI, Mucous Membr. moist/pink Neck Supple, No JVD Cardiovascular Regular Rate, Normal S1, Normal S2, No Murmurs Lungs Clear to Auscultation, Normal Air Movement Abdomen Normal Bowel Sounds, Soft, No Tenderness Neurological Sensation Intact, Strength 3/5 in BLE, 5/5 in BUE Extremities No Clubbing, No Cyanosis, No Edema Assessment/Plan Assessment: 42-year-old male seen at [facility] last week for lumbar spinal stenosis and resulting lower extremity weakness, returns today with repeated lower extremity weakness bilaterally. Problems: 1. Lumbar radiculopathy 2. Lumbar disc herniation Plan: Full code As Ranked By This Provider Problem List: 1. Lumbar radiculopathy 2. Low back pain 3. Lower extremity weakness 4. Morbid obesity Core Measures/Misc (11/18) Acute Coronary Syndrome ACS Diagnosis: No Congestive Heart Failure Congestive Heart Failure Diagnosis No Cerebrovascular Accident CVA/TIA Diagnosis: No VTE (View Protocol) VTE Risk Factors Obesity No Mechanical VTE Prophylaxis d/t N/A MechProphylax Ordered No VTE Pharm Prophylaxis d/t NA PharmProphylax ordered Sepsis (View protocol) Sepsis Present: No If YES complete Sepsis Event Note If YES complete Sepsis Event Note Les Rodriguez 11/20/17 0140: Core Measures/Misc (11/18) Sepsis (View protocol) If YES complete Sepsis Event Note If YES complete Sepsis Event Note Attending MD Review Statement Attending Statement Attending MD Statement: examined this patient, discuss w/resident/PA/VIOLIN MAKER HAND, agreed w/resident/PA/VIOLIN MAKER HAND Attending Assessment/Plan: Addendum by . Patient was seen and examined at bedside today (11/20/17 ) at 1Am.. Reviewed the history physical done by the resident. Reviewed the past medical family, family, social history. ROS: 10 point system reviewed and negative except as described above. Additional details: Patient is here again with increased bilateral leg weakness, falls. Has some back pain as well. Patient says that epidural injection that he received in the last admission did not last long. CT exam for is not noted. Labs, prior MRI report, other imaging studies are reviewed. Assessment plan: #Bilateral leg weakness, frequent falls due to spinal stenosis and thecal compression. Patient has a normal bladder, bowel function. Had a MRI of L- spine in the recent admission. Which showed L2-L3 there is a central disc protrusion which deforms the thecal sac causing severe spinal canal stenosis. He was seen by neurosurgeon at the time. He also had a epidural injection which did not last long. He has spoke to the neurosurgeon. Counseled him in the morning. Patient likely needs surgical intervention. No signs of injury from the falls. #Morbid obesity-weight loss was advised. #Patient has spine surgery before for fracture. #DVT prophylaxis-he is subcu Lovenox. Reviewed with the resident. Agree with the rest of the plan as per resident's note. Dr.Ravinder Mike MD. Hospitalist. Pager: [phone], cell: [phone]. Julian ZHOU,Triston 11/20/17 0148: Core Measures/Misc (11/18) Sepsis (View protocol) If YES complete Sepsis Event Note If YES complete Sepsis Event Note Resident Review Statement Resident Statement: examined this patient, discussed with internal audit director, agreed with internal audit director, reviewed EMR data (avail), amended to note Other Findings: Patient is a 42-year-old morbidly obese male with past medical history significant for chronic back pain, lumbar spine trauma status post L4 to L5 [place] -laminectomy, obstructive sleep apnea currently not on CPAP, recently discharged from [facility] after being admitted for back pain and bilateral lower extremity weakness with MRI showing significant spinal stenosis at L2 to L3 status post epidural injection presenting this admission for similar complaint with worsening lower extremity weakness. Patient reports that since his discharge he was feeling well up until 3 days prior to admission when he started having worsening lower extremity weakness. Reports that he has had 2 falls since his discharge. States that he fell on his knee. Denies any head trauma or loss of consciousness. Reports back pain however states that he can tolerate the pain. Reports that he is most concerned with the difficulty ambulating and lower extremity weakness and significant "muscle soreness" in his thighs. Patient reports occasional shooting pain down the sides of his legs from his lower back along with occasional numbness and tingling in his feet and legs. Patient reports that he uses a walker to ambulate. Denies any saddle anesthesia, loss of control of his bladder or bowel function. Patient during his previous admission was seen by neurosurgery and had an MRI showing a central disc protrusion deforming the thecal sac causing severe spinal canal stenosis at the level of L2 and L3. Patient was given an epidural injection and there was discussion for possible surgery at that time which was held off as patient's symptoms improved at that time. Neurosurgery was notified in the ED and patient was started on IV Decadron 10 mg every 6 hours. Physical exam findings and labs as above Patient is a 42-year-old morbidly obese male with past medical history significant for lumbar spine trauma status post back surgery in 2014, recent MRI showing L2 L3 disc protrusion with severe spinal stenosis presenting this admission with findings consistent for lumbar radiculopathy and stenosis with worsening lower extremity weakness. Patient had a rectal exam done in the ED with no loss of rectal tone and no findings concerning for cord compression at the time of admission. Plan: Ad[facility] to [facility] Nothing by mouth with IV fluids for possible surgery pending formal neurosurgery evaluation in the morning Continue IV Decadron 10 mg every 6 hours per neurosurgery Pain control with Tylenol, Lidoderm, cyclobenzaprine Follow neurosurgery recommendations Consider repeat imaging if symptoms worsen PT/OT consult TRC and CPAP ordered for NICK Preoperative EKG ordered Code: Full code Diet: Nothing by mouth with IV fluids DVT prophylaxis: Alps in setting of severe spinal stenosis and possible surgery
[2017-11-20 00:18] LABS: PT 12.3 SEC (9.4-12.5); PTT 30 SEC (25-37)
--- NOTE | 2017-11-20 01:53 | ED GENERAL ADULT ---
History of Present Illness General Chief Complaint: Low Back Pain/Injury Stated Complaint: LOWER EXTREMITY WEAKNESS Source: patient Exam Limitations: no limitations Vital Signs & Intake/Output Vital Signs & Intake/Output Vital Signs Date Time Temp Pulse Resp B/P B/P Pulse O2 O2 Flow FiO2 Mean Ox Delivery Rate 11/21 0019 78 96 11/20 2235 98.6 72 20 140/80 96 Room Air 11/20 2051 Nasal Room Air Cannula 11/20 1717 97.6 72 20 152/92 97 Room Air 11/20 1515 97.8 84 18 143/85 95 Room Air 11/20 1147 98.4 84 18 118/68 95 Room Air 11/20 0730 98.0 72 20 130/66 98 11/20 0400 98.2 70 20 128/69 99 Room Air 11/20 0130 98.0 77 20 136/87 99 Room Air ED Intake and Output 11/21 0000 11/20 1200 Intake Total Output Total Balance Patient 358 lb Weight Allergies Coded Allergies: Penicillins (UNKNOWN REACTION HAD A KID 11/10/17) cat dander (EYES ITCH AND SWELL, SNEEZE, COUGH 11/10/17) shellfish derived (THROAT CLOSES 11/10/17) Reconcile Medications Cyclobenzaprine HCl 10 MG TABLET 1 TAB PO 4 TIMES/DAY PRN MUSCLE SPASM Triage Note: PT TO ED FOR C/C OF LOWER BACK PAIN X A COUPLE OF DAYS. PT HAD EPIDURAL INJECTION ON SATURDAY WHICH WORKED FOR A COUPLE DAYS BUT PAIN HAS NOW RETURNED. Triage Nurses Notes Reviewed? yes HPI: 42 YO M with pmhx as above, L2-L3 withcentral disc protrusion which deforms the thecal sac causing severe spinal canal stenosis, disc bulge, seen here last week with LE weakness, s/p MRI and NSG eval. given epidural with sx improvement. Now worsening LE weakness and falls. Past History Travel History Traveled to [place] past 21 day No Medical History Any Pertinent Medical History? 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 esophageal CA). MOTHER (Colon CA. MS.). UNCLE (MS). Hx Contributory? No Review of Systems Review of Systems Constitutional: Denies: chills, fever. EENTM: Denies: no symptoms. Cardiovascular: Denies: chest pain. GI: Denies: nausea, vomiting. Genitourinary: Denies: no symptoms. Musculoskeletal: Reports: back pain. Neurological/Psychological: Reports: weakness (BL LE weakness). Physical Exam Physical Exam General Appearance: no apparent distress, alert, awake Eyes: Bilateral: normal appearance. Ears, Nose, Throat: normal ENT inspection Respiratory: normal breath sounds Cardiovascular: regular rate/rhythm Gastrointestinal: soft, non-tender Rectal: good rectal tone, no saddle anesthesia Back: vertebral tenderness Neurologic/Psych: motor/sensory deficits (BL 3/5 strength in LE), +rectal tone, no saddle anesthesia Comments: 3/5 strength BL in LEs Core Measures ACS in differential dx? No CVA/TIA Diagnosis: No Sepsis Present: No Sepsis Focused Exam Completed? No Progress Differential Diagnoses I considered the following diagnoses in my evaluation of the patient: [ CVA, \cuada equina, MSK injury] No other neuro deificits and recently treated for lumbar disk issue trhus diminishing concern for CVA Plan of Care: Orders Procedure Date/time Status Nothing by Mouth 11/21 B Active CBC WITHOUT DIFFERENTIAL 11/21 0600 Active Regular Diet 11/20 L Complete Regular Diet 11/20 D Complete RT: Reevaluation 11/20 2049 Active RT: Evaluation 11/20 2049 Active Weight 11/20 1656 Complete Vital Signs 11/20 165 Active Teach/Educate 11/20 165 Active Pain Treatment and Response 11/20 165 Active Nutritional Intake, Monitor 11/20 165 Active Isolation 11/20 165 Active Intake & Output 11/20 165 Active Patient Care Conference 11/20 165 Active Activity/Ambulation 11/21 1655 Active Change service to 11/20 0731 Active NIH Stroke Scale 11/20 0527 Complete THERAPIST ORDERS 11/20 UNK Complete Current Medications Sig/Alonso Start time Last Medication Dose Stop Time Status Admin Dexamethasone 10 MG Q6P PRN 11/20 1630 AC 11/20 (Decadron) 2140 Cyclobenzaprine HCl 10 MG 4 TIMES/DAY PRN 11/20 0045 AC (Flexeril 10MG Tab) Acetaminophen 650 MG Q6P PRN 11/20 0030 AC 11/20 (Tylenol) 2144 Acetaminophen 1,000 MG Q6P PRN 11/20 0030 AC (Ofirmev) Lidocaine 1 PAT Q24H PRN 11/20 003 AC (Lidoderm) Laboratory Tests 11/20/17 0605: Anion Gap 11, Estimated GFR > 60, BUN/Creatinine Ratio 22.5, CBC w Diff NO MAN DIFF REQ, RBC 5.15, MCV 87.6, MCH 28.8, MCHC 32.9 L, RDW 14.5, MPV 9.1, Gran % 90.2 H, Lymphocytes % 9.4 L, Monocytes % 0.3 L, Eosinophils % 0, Basophils % 0.1, Absolute Granulocytes 10.1 H, Absolute Lymphocytes 1.0 L, Absolute Monocytes 0 L, Absolute Eosinophils 0, Absolute Basophils 0 11/20/17 0136: Anion Gap 12, Estimated GFR > 60, BUN/Creatinine Ratio 25.7 H, Glucose 132 H, Calcium 8.9, Total Bilirubin 0.3, AST 26, ALT 47, Alkaline Phosphatase 59, Total Protein 6.2 L, Albumin 3.8, Globulin 2.4, Albumin/Globulin Ratio 1.6 Initial ED EKG: none Comments: HPI as above +rectal tone no fevers. No ac. No IVDU. No urine/bowel dysfunction. Spoke with Dr. Perry pest control supervisor kaylie Dodd and recs include decadron 10mg q6 and inpt team to call Dr. Dodd in AM. PAtient has objective neurologic deficits in lower extremities. Needs urgent steroid therapy, intensive requiringinpt care. Will also need to be in house for possible NSG intervention. Departure Departure Disposition: STILL A PATIENT Condition: Stable Clinical Impression Primary Impression: Lower extremity weakness Referrals: Melissa Ivan DO (PCP/Family) Departure Forms: Customer Survey General Discharge Information Admission Note Spoke With: Les Rodriguez MD Documentation of Exam: Documentation of any treatments & extenuating circumstances including Concerns Regarding Discharge (functional status, medication knowledge or non-compliance, living conditions, etc.) that warrant an admission rather than observation: [ Patient with sign's and symptoms consistent with acute neurologic compromise up to and including lumbar compression symptoms. Will need neurosurgical intervention and intensive steroid therapy for spinal cord decompression. Critical Care Note Critical Care Note Critical Care Time: non-applicable
--- NOTE | 2017-11-20 07:11 | PN- Housestaff ---
Rome Mora 11/20/17 0710: Subjective Follow-up For: Lumbar Radiculopathy Bilateral lower extremity weakness s/p falls Subjective: Pt seen and examined at bedside this morning. He states his pain is located at the left buttox and intermittently radiates down to his foot. However, he is more concerned about the weakness in his lower extremities that has caused him to fall. Currently NPO on D5 1/2 @ 75/hr. Pending neurosurgery recommendations. Denies any bowel/bladder incontinence or fevers and chills. Review of Systems Constitutional: Denies: see HPI. Objective Last 24 Hrs of Vital Signs/I&O Vital Signs Date Time Temp Pulse Resp B/P B/P Pulse O2 O2 Flow FiO2 Mean Ox Delivery Rate 11/20 0400 98.2 70 20 128/69 99 Room Air 11/20 0130 98.0 77 20 136/87 99 Room Air 11/19 2322 97.9 78 18 133/82 95 Room Air 11/19 2211 98.0 72 20 132/76 98 Room Air 11/19 1640 97.1 75 15 97 Room Air Room Air Intake & Output 11/20 1600 11/20 0800 11/20 0000 Intake Total 0 Output Total Balance 0 Intake, Oral 0 Physical Exam General Appearance: Alert, Oriented X3, Cooperative, Mild Distress Skin: No Rashes Skin Temp/Moisture Exam: Warm/Dry HEENT: Mucous Membr. moist/pink Cardiovascular: Normal S1, Normal S2 Lungs: Clear to Auscultation Abdomen: Soft, No Tenderness Neurological: Decreased strength in left lower extremity > right; 3/5 Sensation intact; reflexes hypoactive; no significant upper motor signs Rectal tone intact as per ED examination Extremities: No Edema Assessment/Plan Assessment: 42 year old male with PMH significant for lumbar spine trauma and surgery in 2014 was brought to ED for worsening lower back , extremity and numbness and weakness. Patient discharged last week after being treated with epidural injection. Patient has had 2 falls since discharge. Denies loss of bowel/bladder control. Patient supposed to follow up outpatient with neurosurgeon Dr. Dodd for surgical intervention. ED: Decadron 10mg Q6 IV *NORMAL RECTAL TONE WBC: 13.3, INR: 1.13, BUN/Cr: 18/0.7 LUMBAR MRI 11/11: - At L2-L3 there is a central disc protrusion which deforms the thecal sac causing severe spinal canal stenosis. - At L4-L5 there are postoperative findings related to partial left-sided hemilaminectomy and ligamentum flavum stripping. There is disc bulging with shallow central protrusion resulting in flattening of the ventral thecal sac and encroachment on the subarticular zones. - Developmental narrowing of the spinal canal related to short pedicles. PROBLEM LIST: 1. Lumbar Spinal Stenosis PLAN: * Neurosurgery follow-up - spoke with Dr. Dodd on the phone, he is aware of patients readmission and states the patient did not follow up after discussion of surgery from the last admisison. Will not see patient today. * Pain Control: Flexeril 10mg 4 times a day, Tylenol IV/PO, Lidoderm * Discontinued Decadron * Regular diet and make patient NPO for tomorrow incase neurosurgery decides on intervention Code Status: Full Code DVT PPx: ALPS - no ac given possible intervention or risk of hematoma Diet: Regular, NPO after midnight Problem List: 1. Low back pain 2. Lower extremity weakness Pain Ratin Pain Location: left buttocks Pain Goal: Pain 4 or less Pain Plan: as per pain pathway Tomorrow's Labs & Rationales: cbc bep INR Ronan Henning MD 11/20/17 1312: Attending MD Review Statement Attending Statement Attending MD Statement: examined this patient, discuss w/resident/PA/COIL WINDER REPAIR, agreed w/resident/PA/COIL WINDER REPAIR, reviewed EMR data (avail), discussed with nursing, amended to note Attending Assessment/Plan: Patient seen and examined. Lying comfortably in bed. Not in any acute distress. Very jovial. Admits to mild pain but states that it is tolerable. His biggest concern and reason for presentation is weakness. Weakness resulted in some falls at home prior to hospitalization today. He reports although he is able to ambulate he finds it very difficult to do so. On examination his deficits in the lower extremities. Power is weak 3/5 bilaterally. He is just able to lift up both legs against gravity. He is unable to move against any resistance. He has very poor dorsi and plantar flexion. Sensation is intact. Documentation from the ER staff yesterday shows normal rectal tone. The neurosurgical service was contacted again this morning. Dr. Cole states that he will evaluate the patient in the hospital tomorrow morning. No plans for surgical intervention today. Follow-up patient would like conservative management if possible, he is amenable to undergoing surgery if that is what is required to improve his functional status. Was discharged last time to follow-up with a physical therapy service was unable to make the appointment prior to being hospitalized again. We will have him evaluated by the physical therapy service here in the hospital particularly since he states he is able to get up and ambulate although very weak when he does so. Will await further recommendations from the neurosurgery service. Also recommend recontacting the neurosurgical service today to determine if patient may indeed benefit from ongoing systemic steroid therapy. Currently reports minimal pain which is tolerable.
[2017-11-20 08:43] LABS: ABSOLUTE BASOPHIL COUNT 0 /CUMM (0.0-0.2); ABSOLUTE EOSINOPHIL COUNT 0 /CUMM (0.0-0.7); ABSOLUTE GRANULOCYTE CT 10.1 /CUMM (1.4-6.5); ABSOLUTE MONOCYTE COUNT 0 /CUMM (0.10-0.60); BASOPHIL % 0.1 % (0.0-2.0); EOSINOPHIL % 0 % (0-5); HEMATOCRIT 45.1 % (42-52); MEAN CORPUSCULAR HGB 28.8 PG (27.0-31.0); MEAN CORPUSCULAR HGB CONC 32.9 G/DL (33.0-37.0); MEAN CORPUSCULAR VOLUME 87.6 FL (80.0-94.0); MEAN PLATELET VOLUME 9.1 FL (7.4-10.4); PLATELET COUNT 211 /CUMM (130-400); RBC DISTRIBUTION WIDTH 14.5 % (11.5-14.5); RED BLOOD CELL CT 5.15 /CUMM (4.70-6.10); WHITE BLOOD CELL COUNT 11.2 /CUMM (4.8-10.8)
[2017-11-20 09:16] LABS: GRANULOCYTE % 90.2 % (42.2-75.2)
--- NOTE | 2017-11-20 15:07 | Patient Discharge Instructions ---
Discharge Instructions General Discharge Information You were seen/treated for: Lumbar Radiculopathy Spinal Stenosis Special Instructions: Please follow up with Dr. Dodd of Neurosurgery as soon as possible after discharge regarding surgical intervention. Please follow up with your PCP within 1-2 weeks of discharge. Return to ED with worsening lower extremity weakness, bowel/bladder incontinence , fevers, chills. Acute Coronary Syndrome Inclusion Criteria At DC or during hospital stay patient has or had the following: ACS DIAGNOSIS No Discharge Core Measures Meds if any: Prescribed or Continued at Discharge Meds if any: NOT Prescribed or Continued at Discharge Congestive Heart Failure Inclusion Criteria At DC or during hospital stay patient has or had the following: CHF DIAGNOSIS No Discharge Core Measures Meds if any: Prescribed or Continued at Discharge Meds if any: NOT Prescribed or Continued at Discharge Cerebrovascular accident Inclusion Criteria At DC or during hospital stay patient has or had the following: CVA/TIA Diagnosis No Discharge Core Measures Meds if any: Prescribed or Continued at Discharge Meds if any: NOT Prescribed or Continued at Discharge Venous thromboembolism Inclusion Criteria VTE Diagnosis No VTE Type NONE VTE Confirmed by (Test) NONE Discharge Core Measures - Per Current guidelines, there needs to be overlap - treatment for the first 5 days of Warfarin therapy. - If discharged on Warfarin prior to 5 days of - overlap therapy, the patient will need to be - assessed for post discharge needs including - *Post discharge parental anticoagulation - *Warfarin and/or parental anticoagulation education - *Follow up date to check INR post discharge At least 5 days overlap therapy as Inpatient No Meds if any: Prescribed or Continued at Discharge Note: Overlap Therapy is Warfarin and Anticoagulant Meds if any: NOT Prescribed or Continued at Discharge
[2017-11-20 17:17] VITALS: BP 152/92
[2017-11-20 22:35] VITALS: BP 140/80
[2017-11-21 06:10] VITALS: BP 124/84
--- NOTE | 2017-11-21 07:01 | PN- Housestaff ---
[place] Mor[place] 11/21/17 0700: Subjective Follow-up For: Lumbar Radiculopathy/Spinal Stenosis Bilateral lower extremity weakness Subjective: Pt seen and examined at bedside this morning. He states he walked around this morning with assist of walker and was able to watch sunset. Denies any lower extremity pain, numbness or tingling. No bowel or bladder incontinence reported. No fevers, chills. Patient states he discussed with his neurosurgeon at [facility] ( Dr. Fernando Leigh) for an appointment tomorrow. Will see PT today and be discharged on prednisone taper. Review of Systems Constitutional: Denies: see HPI. Objective Last 24 Hrs of Vital Signs/I&O Vital Signs Date Time Temp Pulse Resp B/P B/P Pulse O2 O2 Flow FiO2 Mean Ox Delivery Rate 11/21 0610 97.4 74 20 124/84 99 Room Air 11/21 0019 78 96 11/20 2235 98.6 72 20 140/80 96 Room Air 11/20 2051 Nasal Room Air Cannula 11/20 1717 97.6 72 20 152/92 97 Room Air 11/20 1515 97.8 84 18 143/85 95 Room Air 11/20 1147 98.4 84 18 118/68 95 Room Air Intake & Output 11/21 1600 11/21 0800 11/21 0000 Intake Total 300 Output Total Balance 300 Intake, Oral 300 Patient 358 lb Weight Physical Exam General Appearance: Alert, Oriented X3, Cooperative, No Acute Distress Skin: No Rashes Skin Temp/Moisture Exam: Warm/Dry HEENT: EOMI, Mucous Membr. moist/pink Neck: Supple Cardiovascular: Normal S1, Normal S2 Lungs: Clear to Auscultation, Normal Air Movement Abdomen: Soft, No Tenderness Neurological: Strength 4/5 in bilateral lower extremities Sensation intact bilaterally Normal Tone Hyporeflexive Extremities: No Edema Vascular: Normal Pulses Current Medications: Current Medications Sig/Alonso Start time Last Medication Dose Route Stop Time Status Admin Acetaminophen 0 .STK-MED ONE 11/20 1233 DC PO Acetaminophen 650 MG Q6P PRN 11/20 0030 AC 11/20 PO 2144 Acetaminophen 1,000 MG Q6P PRN 11/20 0030 AC IV Cyclobenzaprine HCl 10 MG 4 TIMES/DAY PRN 11/20 0045 AC PO Dexamethasone 10 MG Q6P PRN 11/20 1630 AC 11/21 IV PUSH 0531 Lidocaine 1 PAT Q24H PRN 11/20 0030 AC EXT Morphine Sulfate 0 .STK-MED ONE 11/20 2026 DC .ROUTE Last 24 Hrs of Lab/[place] Results Last 24 Hrs of Labs/Mics: Laboratory Tests 11/21/17 0755: CBC w Diff NO MAN DIFF REQ, RBC 5.25, MCV 88.3, MCH 29.2, MCHC 33.1, RDW 14.3, MPV 9.0, Gran % 88.8 H, Lymphocytes % 9.7 L, Monocytes % 1.5 L, Eosinophils % 0, Basophils % 0, Absolute Granulocytes 10.9 H, Absolute Lymphocytes 1.2, Absolute Monocytes 0.2, Absolute Eosinophils 0, Absolute Basophils 0 Assessment/Plan Assessment: 42 year old male with PMH significant for lumbar spine trauma and surgery in 2014 was brought to ED for worsening lower back , extremity and numbness and weakness. Patient discharged last week after being treated with epidural injection. Patient has had 2 falls since discharge. Denies loss of bowel/bladder control. Patient supposed to follow up outpatient with neurosurgeon Dr. Dodd for surgical intervention. NORMAL RECTAL TONE documented as per ED. PROBLEM LIST: 1. Lumbar Spinal Stenosis/Radiculopathy PLAN: * Patient has outpatient follow up tomorrow with his neurosurgeon from [facility] ( Fernando Leigh) for further discussion on surgical intervention * Continue Decadron; Discharge on prednisone taper 40mg for 2 days and 20mg for 2 days * Pain Control: Flexeril 10mg 4 times a day, Tylenol IV/PO, Lidoderm * PT seen patient today - recommends home self care Code Status: Full Code DVT PPx: ALPS - no ac given possible intervention or risk of hematoma Diet: Regular Diet Problem List: 1. Back pain 2. Bilateral lumbar radiculopathy Pain Ratin Pain Location: left buttock Pain Goal: Pain 4 or less Pain Plan: as per pain pathway Tomorrow's Labs & Rationales: discharge today Ronan Henning MD 11/21/17 1138: Attending MD Review Statement Attending Statement Attending MD Statement: examined this patient, discuss w/resident/PA/DENTURE TECHNICIAN, agreed w/resident/PA/DENTURE TECHNICIAN, reviewed EMR data (avail), discussed with nursing, discussed with case mgmt, amended to note Attending Assessment/Plan: Patient seen and examined. Doing well this morning. Not in any distress. Continues to deny pain. He was able to ambulate around the unit yesterday and today. He is looking forward to going home. He has made an appointment with his original spine surgeon who apparently has change on his schedule I made an appointment to see the patient tomorrow. He is very excited about this and eager to go home today. He was evaluated by the physical therapy service and cleared for discharge home. We have provided him with an oral prednisone taper and asked him to follow-up with his spine surgeon regarding the need for any further steroid therapy after completing that. Laboratory data reviewed. Leukocytosis present likely secondary to steroid therapy.
[2017-11-21 09:14] LABS: ABSOLUTE BASOPHIL COUNT 0 /CUMM (0.0-0.2); ABSOLUTE EOSINOPHIL COUNT 0 /CUMM (0.0-0.7); ABSOLUTE GRANULOCYTE CT 10.9 /CUMM (1.4-6.5); ABSOLUTE LYMPH COUNT 1.2 /CUMM (1.2-3.4); ABSOLUTE MONOCYTE COUNT 0.2 /CUMM (0.10-0.60); BASOPHIL % 0 % (0.0-2.0); EOSINOPHIL % 0 % (0-5); HEMATOCRIT 46.4 % (42-52); MEAN CORPUSCULAR HGB 29.2 PG (27.0-31.0); MEAN CORPUSCULAR HGB CONC 33.1 G/DL (33.0-37.0); MEAN CORPUSCULAR VOLUME 88.3 FL (80.0-94.0); PLATELET COUNT 235 /CUMM (130-400); RBC DISTRIBUTION WIDTH 14.3 % (11.5-14.5); RED BLOOD CELL CT 5.25 /CUMM (4.70-6.10); WHITE BLOOD CELL COUNT 12.3 /CUMM (4.8-10.8)
[2017-11-21] MEDS ORDERED: PREDNISONE10 M2 PO ×2 (09:34→09:44)
[2017-11-21 10:31] LABS: GRANULOCYTE % 88.8 % (42.2-75.2)
--- NOTE | 2017-11-21 13:57 | Discharge Summary ---
Visit Information Visit Dates Admission Date: 11/19/17 Discharge Date: 11/21/17 Hospital Course Course Attending Physician: Ronan Henning MD Primary Care Physician: Melyssa Ivan DObeth [place] [facility] Course: HOSPITAL COURSE: 42 year old male with history of lower back trauma status post spinal surgery, lumbar radiculopathy and lumbar disc herniation, recently seen at [place] last week and treated with epidural injections presents again with weakness in his bilateral legs. The patient was discharged on November 12 and felt well until Saturday when he began feeling weakness in his legs, which has progressively been worsening. He suffered 2 falls outside of hospital environment before returning for treatment, reports that he has difficulty ambulating, with pain and has only been able to ambulate at home, slowly and painfully. He states that the weakness in his legs usually worse in the mornings, and that he has been using a walker to ambulate around his home. He denies any loss of bladder or bowel control. The patient did not report that he experiences shooting pain on the sides of his buttocks and legs at times, as well as occasional numbness and tingling in his feet and lower extremities.He reports pain like "muscle soreness" in his upper legs. EMERGENCY DEPARTMENT: Neurosurgery notified in ED and patient started on IV Decadron 10mg q 6. *NORMAL RECTAL TONE WBC: 13.3, INR: 1.13, BUN/Cr: 18/0.7 LUMBAR MRI 11/11: - At L2-L3 there is a central disc protrusion which deforms the thecal sac causing severe spinal canal stenosis. - At L4-L5 there are postoperative findings related to partial left-sided hemilaminectomy and ligamentum flavum stripping. There is disc bulging with shallow central protrusion resulting in flattening of the ventral thecal sac and encroachment on the subarticular zones. - Developmental narrowing of the spinal canal related to short pedicles. GENERAL MEDICINE: PROBLEM LIST: 1. Lumbar Spinal Stenosis COURSE: Neurosurgery follow-up. Soke with Dr. Dodd on the phone, he is aware of patients readmission and states the patient did not follow up after discussion of surgery from the last admisison. Will not see patient during the admission. Advised to follow up outpatient for surgical discussion. Pain Control: Flexeril 10mg 4 times a day, Tylenol IV/PO, Lidoderm. Continued decadron. Patient discharged on prednisone 40 x 2 and 20 x 2. Held off any anticoagulation/NSAIDs during stay in case of surgical intervention. Patient seen by PT, was stable and able to walk around with assistance of cane. Patient called his previous neurosurgeon from [facility] Dr. Fernando Leigh who claimed would see the patient the day after discharge. Code Status: Full Code DVT PPx: ALPS - no ac given possible intervention or risk of hematoma Diet: Regular Allergies: Coded Allergies: Penicillins (UNKNOWN REACTION HAD A KID 11/10/17) cat dander (EYES ITCH AND SWELL, SNEEZE, COUGH 11/10/17) shellfish derived (THROAT CLOSES 11/10/17) Disposition Summary Disposition Principal Diagnosis: Lumber Radiuclopathy Additional Diagnosis: Spinal Stenosis Discharge Disposition: home or self care Discharge Instructions General Discharge Information Code Status: Full Code Patient's Diet: As tolerated Patient's Activity: tolerated Follow-Up Instructions/Appts: Please follow up with Dr. Dodd of Neurosurgery or your [facility] Neurosurgeon Dr. Fernando Leigh as soon as possible after discharge regarding surgical intervention. Please follow up with your PCP within 1-2 weeks of discharge. Complete Prednisone taper: 40 for 2 days, 20 for 2 days. Return to ED with worsening lower extremity weakness, bowel/bladder incontinence , fevers, chills. Medications at Discharge Discharge Medications: Continue taking these medications: Cyclobenzaprine HCl (Cyclobenzaprine HCl) 10 MG TABLET 1 Tablet ORAL 4 TIMES A DAY as needed for MUSCLE SPASM Qty = 30 Comments: DID NOT ADMINISTER IN HOSPITAL Start taking the following new medications: Prednisone (Prednisone) 10 MG TABLET 0 ORAL DAILY Qty = 12 No Refills Instructions: 4 pills on 11/22, 11/23 2 pills on 11/24, 11/25. Comments: IV DECADRON ADMINISTERED Copies To: Marleny Ivan DO, MD,Octavio Martell
== END 2017-11-21 11:21 | DRG 347 ==
LOC: ERH 16:22 → ERHI 23:28 → 2NA 23:28 → ERHI 11-20 07:43 → ENRESERV 11-20 15:32 → ENTRNSPT 11-20 16:16 → EDTRNSPTSTS 11-20 16:26 → EDTRNSPT 11-20 16:26 → CMPTRNSPT 11-20 16:36 → 2NA 11-20 16:41 → ENTRNSPT 11-21 10:49 → 2NA 11-21 11:21 → EDTRNSPT 11-21 11:22 → EDTRNSPTSTS 11-21 11:22 → CMPTRNSPT 11-21 11:30
PROVIDERS: Emergency Medicine; Physical Medicine & Rehabilitation Pain Medicine; Student in an Organized Health Care Education/Training Program
DX: M48.061 Spinal stenosis, lumbar region without neurogenic claudication (principal); M51.16 Intervertebral disc disorders with radiculopathy, lumbar region; E66.01 Morbid (severe) obesity due to excess calories; Z68.43 Body mass index [BMI] 50.0-59.9, adult; Z88.0 Allergy status to penicillin; G47.33 Obstructive sleep apnea (adult) (pediatric); Z98.1 Arthrodesis status
CPT/HCPCS: 2NASP; ERO; 36592; 82436; 93005; 93010; 97116-GO; 97161-GP; 97530-GO; J1100